=== PATIENT | male | born 1990 | race African-American/Black ===

== ENCOUNTER 2018-01-29 19:36 | Emergency (ER) | payer OTHER ==
[2018-01-29] MEDS: DIAZEPAM 5 MG TAB PO (20:22)
[2018-01-29] MEDS: ACETAMINOPHEN 500 MG TAB PO (20:24)
[2018-01-29] MEDS: SOD CHLORIDE 0.9% 1,000 ML IV (20:24)
[2018-01-29 21:01] LABS: ADD MAN DIFF? NO
[2018-01-29 21:02] LABS: WHITE BLOOD COUNT 7.3 10^3/ul (4.8-10.8)
[2018-01-29 21:02] LABS: BASOPHILS % 0.5 % (0.0-2.0); EOSINOPHILS # 0.1 10^3/ul (0.0-0.5); EOSINOPHILS % 1.4 % (0.0-7.0); HEMATOCRIT 45.9 % (42.0-52.0); HEMOGLOBIN 15.8 g/dl (14.0-18.0); LYMPHOCYTES # 2.1 10^3/ul (0.8-2.9); MEAN CORPUSCULAR HEMOGLOBIN 28.9 pg (29.0-33.0); MEAN CORPUSCULAR HGB CONC 34.4 g/dl (32.0-37.0); MEAN CORPUSCULAR VOLUME 84.1 fl (82.0-101.0); MEAN PLATELET VOLUME 10.7 fl (7.4-10.4); MONOCYTE # 0.5 10^3/ul (0.3-0.9); MONOCYTES % 6.5 % (0.0-11.0); NEUTROPHIL # 4.6 10^3/ul (1.6-7.5); NEUTROPHILS % 62.5 % (39.0-77.0); PLATELET COUNT 281 10^3/UL (140-415); RED BLOOD COUNT 5.46 10^6/ul (4.70-6.10); RED CELL DISTRIBUTION WIDTH 12.8 % (11.5-14.5)
[2018-01-29 21:18] LABS: ANION GAP 20 (8-16); BLOOD UREA NITROGEN 14 mg/dl (7-20); CALCIUM 10.3 mg/dl (8.4-10.2); CARBON DIOXIDE 23 mmol/L (21-31); CHLORIDE 107 mmol/L (97-110); CREATININE 1.26 mg/dl (0.61-1.24); GLUCOSE 93 mg/dl (70-220); POTASSIUM 3.8 mmol/L (3.5-5.1); SODIUM 146 mmol/L (135-144)
== END 2018-01-29 22:04 | disposition home or self-care (01) ==
LOC: E/R 19:36
DX: R42 Dizziness and giddiness (principal); R56.9 Unspecified convulsions; R55 Syncope and collapse
CPT/HCPCS: 36415; 80048; 82962; 85025; 93005; 99284-25